=== PATIENT | female | born 1985 | race Caucasian/White ===

== ENCOUNTER 2019-12-24 21:30 | Emergency (ER) | payer BC ==
[2019-12-24] MEDS ORDERED: Albuterol/Ipratropium 3.0-0.5 MG/3 ML Neb Soln NEB ONE (22:13)
--- NOTE | 2019-12-24 22:14 | EDM.PDOC ---
ED HPI GENERAL MEDICAL PROBLEM - General Chief Complaint: Chest Pain Stated Complaint: SORE THROAT COUGH Time Seen by Provider: 12/24/19 22:08 Source of Information: Reports: Patient History Limitations: Reports: No Limitations - History of Present Illness INITIAL COMMENTS - FREE TEXT/NARRATIVE: 34-year-old female presents to the ED with severe paroxysmal cough. She has been ill for over a week. She was tested for influenza and proved to be negative over a week ago. She still remains mildly febrile on my examination. She complaining of sore throat,mostly from coughing .She her voice has remained quite hoarse. She is feeling more wheezy and tight in her chest. Tonight she coughed so hard she felt something rip or tear in her left upper anterior chest below her collarbone and upper ribs. This pain is quite severe with touching. Does hurt mildly with deep inspiration at this time but is still aggravated by coughing. Onset: Other (Patient reports she has been ill with upper respiratory tract infection with bronchitis/cough) Onset Date: 12/17/19 Duration: Day(s):, Constant, Waxing/Waning Location: Reports: Chest (There paroxysmal cough occasionally productive of brownish sputum.), Other (Worse voice. Was hurt from coughing so much cough does disrupt her sleep as well.) Quality: Reports: Other (Pain left upper anterior chest from coughing so much tonight.) Severity: Moderate (A 7-8 out of 10) Improves with: Reports: Rest (Breathing shallowly and resting) Worsens with: Reports: Other, Movement Context: Denies: Activity, Exercise (Coughing), Lifting, Sick Contact, Trauma, Other Associated Symptoms: Reports: Chest Pain (Acute exacerbation of left upper anterior chest pain from coughing so hard tonight.), Cough, cough w sputum, Fever/Chills, Loss of Appetite, Malaise, Nausea/Vomiting (Vomiting a couple of times from coughing so much), Shortness of Breath. Denies: No Other Symptoms, Confusion ( She felt a ripping tearing pain left upper anterior chest. 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) Left Chest Pain Score (Numeric/FACES): 4 - Related Data Allergies Allergy/AdvReac Type Severity Reaction Status Date / Time influenza virus vaccine, Allergy Lethargy Verified 12/24/19 21:50 specific latex Allergy Hives Verified 12/24/19 21:50 Whooping Cough Vaccine Allergy Lethargy Uncoded 12/24/19 21:50 Home Meds: Home Meds Doxycycline [Vibramycin] 100 mg PO BID #20 cap 12/24/19 [Rx] Hydrocodone/Chlorphen P-Stirex [Hydrocodone-Chlorphen ER Susp] 5 ml PO Q12H PRN #60 ml 12/24/19 [Rx] predniSONE [Prednisone] 20 mg PO ASDIRECTED #18 tablet 12/24/19 [Rx] Past Medical History HEENT History: Reports: Impaired Vision Cardiovascular History: Reports: Heart Murmur Respiratory History: Reports: Bronchitis, Recurrent, Pneumonia, Recurrent 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: Musculoskeletal History: Reports: None Neurological History: Reports: None Psychiatric History: Reports: None Endocrine/Metabolic History: Reports: Obesity/BMI 30+ Hematologic History: Reports: None Immunologic History: Reports: None Oncologic (Cancer) History: Reports: None Dermatologic History: Reports: None - Infectious Disease History Infectious Disease History: Reports: None - Past Surgical History GI Surgical History: Reports: Cholecystectomy Female Surgical History: Reports: Other (See Below) Other Female Surgeries/Procedures: Colposcopy Social & Family History - Tobacco Use Smoking Status *Q: Never Smoker - Caffeine Use Caffeine Use: Reports: Other Other Caffeine Use: Sparkling Water c Caffeine - Recreational Drug Use Recreational Drug Use: No - Living Situation & Occupation Living situation: Reports: Occupation: Employed [employer] GENERAL - Review of Systems Review Of Systems: See Below Constitutional: Reports: Fever, Chills, Malaise, Weakness, Fatigue, Decreased Appetite HEENT: Reports: Other Respiratory: Reports: Shortness of Breath (Sore throat and hoarse voice), Wheezing, Cough, Sputum. Denies: Pleuritic Chest Pain, Hemoptysis Cardiovascular: Reports: Chest Pain (Bilateral rib pain from coughing for the last week. Acute left upper anterior chest pain tonight from coughing so hard) , Blood Pressure Problem, Lightheadedness. Denies: Claudication, Dyspnea on Exertion, Edema (Coughing so hard at times), Orthopnea, Palpitations Endocrine: Reports: Fatigue GI/Abdominal: Reports: Decreased Appetite, Vomiting : Reports: No Symptoms (Posttussive emesis a couple of times in the last week. ) Musculoskeletal: Reports: Back Pain Skin: Reports: No Symptoms Neurological: Reports: No Symptoms Psychiatric: Reports: No Symptoms (Patient problems with low back pain) Hematologic/Lymphatic: Reports: No Symptoms Immunologic: Reports: No Symptoms ED EXAM, GENERAL - Physical Exam Exam: See Below Exam Limited By: No Limitations General Appearance: Alert, WD/WN, Mild Distress, Other (Temperature is 36.2 although she feels warmer than this. Heart rate is 85 and sinus respiratory is 18 BP is elevated 182/103. Pulse ox 95% on room air.) Eye Exam: Bilateral Eye: Normal Inspection Ears: Normal TMs Throat/Mouth: Normal Inspection, Normal Lips, Normal Teeth, Normal Oropharynx Head: Atraumatic, Normocephalic Neck: Normal Inspection, Supple, Non-Tender, Full Range of Motion. No: Lymphadenopathy (L), Lymphadenopathy (R) Respiratory/Chest: No Respiratory Distress, No Accessory Muscle Use, Rhonchi, Wheezing, Other (Patient is exquisitely tender to palpation of the left upper anterior chest with musculature below her clavicle and adjacent to ribs 2 and 3 at the costochondral joints. She appears to have strained the joints from coughing and torn muscle overlying this area. Most likely pectoralis major.). No: Lungs Clear ([place] expiratory wheeze particular from the right lung base.), Normal Breath Sounds Cardiovascular: Normal Peripheral Pulses (Rhonchi best heard upper anterior chest with coughing. Cough does sound productive), Regular Rate, Rhythm, No Edema, No Gallop, No Murmur, No Rub Peripheral Pulses: 3+: Posterior Tibial (L), Posterior Tibial (R), Dorsalis Pedis (L), Dorsalis Pedis (R) GI/Abdominal: Normal Bowel Sounds, Soft, Non-Tender, No Organomegaly, No Abnormal Bruit, No Mass, Pelvis Stable, Other (Abdominal girth limits ability to palpate solid organs.) Back Exam: Normal Inspection, Full Range of Motion. No: CVA Tenderness (L), CVA Tenderness (R) Extremities: Normal Inspection, Normal Range of Motion, Non-Tender, No Pedal Edema Neurological: Alert, Oriented, CN II-XII Intact, Normal Cognition Psychiatric: Anxious Skin Exam: Warm, Dry, Intact, Normal Color, No Rash Course - Vital Signs Last Recorded V/S: Last Vital Signs Temp 36.2 C 12/24/19 21:47 Pulse 90 12/24/19 23:19 Resp 20 12/24/19 23:19 BP 142/78 H 12/24/19 23:19 Pulse Ox 97 12/24/19 23:19 - Orders/Labs/Meds Orders: Active Orders 24 hr Category Date Time Status RT Aerosol Therapy [RC] ASDIRECTED Care 12/24/19 22:13 Active Chest 2V [CR] Stat Exams 12/24/19 22:11 Taken Meds: Medications Discontinued Medications Generic Name Dose Route Start Last Admin Trade Name Freq PRN Reason Stop Dose Admin Albuterol/Ipratropium 3 ml 12/24/19 22:13 12/24/19 22:29 Duoneb 3.0-0.5 Mg/3 Ml NEB 12/24/19 22:14 3 ml ONETIME ONE Administration Oxycodone/Acetaminophen 2 tab 12/24/19 22:53 12/24/19 23:13 Percocet 325-5 Mg PO 12/24/19 22:54 2 tab ONETIME ONE Administration Prednisone 30 mg 12/24/19 22:54 12/24/19 23:13 Prednisone PO 12/24/19 22:55 30 mg ONETIME ONE Administration - Radiology Interpretation Free Text/Narrative:: 34-year-old female attends the ED due to a weeklong history of severe paroxysmal cough that just is not getting any better. She continues to run a low-grade fever and feel intermittently chilled. She was tested in the clinic last week within the first day of illness for influenza and it proved to be negative. They could have been false negative. She came to the ED tonight because of coughing so hard she developed sudden onset of severe ripping tearing pain left upper anterior chest. She is very tender to palpation left upper anterior chest over the costochondral joints #2 and 3 left upper anterior chest and inferior to her collarbone where the muscle attaches to the clavicle. She does have some rhonchi midline upper chest and wheezing in her right lower chest. I am going to give her a DuoNeb treatment. Chest x-ray two-view will be done to rule out pneumonia. Given Percocet 5 /325 mg -2 tablets by mouth now for pain relief . - Re-Assessments/Exams Free Text/Narrative Re-Assessment/Exam: 12/24/19 22:51 Two view chest x-ray is within normal limits. There is some basilar atelectasis bilaterally but I do not feel there is a true infiltrate right lower lobe to suggest pneumonia. Gnosis is Bronkaid colitis with severe paroxysmal cough. Place the patient on prednisone 20 mg twice daily for 6 days and then once in the morning for another 6 days. Give her a prescription for Penntuss cough syrup 5 mils every 12 hours as necessary for relief of severe cough. Antibiotic will be doxycycline 100 mg twice daily for the next 10 days. I have also given her prednisone 30 mg p.o. in the ED. We will follow- up with her personal care physician if any further problems occur or she has not markedly improved in the next 5 days. Departure - Departure Time of Disposition: 22:52 Disposition: Home, Self-Care 01 Condition: Fair Clinical Impression: Acute wheezy bronchitis Chest wall muscle strain Qualifiers: Encounter type: initial encounter Qualified Code(s): S29.011A - Strain of muscle and tendon of front wall of thorax, initial encounter - Discharge Information *PRESCRIPTION DRUG MONITORING PROGRAM REVIEWED*: Not Applicable *COPY OF PRESCRIPTION DRUG MONITORING REPORT IN PATIENT KATHERIN: Not Applicable Prescriptions: Doxycycline [Vibramycin] 100 mg PO BID #20 cap Hydrocodone/Chlorphen P-Stirex [Hydrocodone-Chlorphen ER Susp] 5 ml PO Q12H PRN #60 ml PRN Reason: cough relief predniSONE [Prednisone] 20 mg PO ASDIRECTED #18 tablet Instructions: Muscle Strain, [id number], Acute Bronchitis, Adult, Easy-to- Read Referrals: PCP,None [Primary Care Provider] - Forms: ED Department Discharge, ED Return to Work/School Form Additional Instructions: Evaluation in the emergency room tonight in regards to development of acute left upper anterior chest pain during a coughing spell tonight. Examination reveals marked tenderness along the second and third costochondral joints where the ribs join onto the breastbone and the overlying muscles that attach to your collarbone of the upper chest. You have been sick for over a week and still have a low-grade fever and producing sputum. Previous testing for influenza proved to be negative. A chest x-ray was done tonight and does not reveal any signs of pneumonia. Diagnosis therefore is bronchitis. You were given Percocet tablets to 325 mg tablets for pain relief in the ED and also to help suppress cough for the next 4 to 6 hours. You were also given a breathing treatment to help relieve some of your wheezing and chest tightness. Treatment is to be antibiotic doxycycline 100 mg twice daily for the next 10 days to clear up infection. Penntuss cough syrup 5 mils every 12 hours necessary for relief of cough. Suggest at least 5 mils an hour before planning to go to bed as it takes about an hour to work and hopefully will suppress cough overnight. If you are still coughing in another hour may take another half a teaspoon of the medication. Prednisone 20 mg with breakfast and supper for the next 6 days and then 1 tablet morning for another 6 days to reduce inflammation of the lungs and help with wheezing and cough. Initial dose of prednisone 30 mg was given in the ED tonight. Continue Motrin 600 mg every 6 hours as needed for relief of fever as needed. Suggest off work for the next 3 days and a note was given in this regard. Sepsis Event Note - Evaluation Sepsis Screening Result: No Definite Risk - Focused Exam Vital Signs: Vital Signs Temp Pulse Resp BP Pulse Ox Pulse Ox 12/24/19 23:19 90 20 142/78 H 97 12/24/19 22:13 96 12/24/19 21:47 36.2 C 85 18 182/103 H 95 Date Exam was Performed: 12/25/19 Time Exam was Performed: 04:23 - My Orders Last 24 Hours: My Active Orders 12/24/19 22:11 Chest 2V [CR] Stat 12/24/19 22:13 RT Aerosol Therapy [RC] ASDIRECTED - Assessment/Plan Last 24 Hours: My Active Orders 12/24/19 22:11 Chest 2V [CR] Stat 12/24/19 22:13 RT Aerosol Therapy [RC] ASDIRECTED
[2019-12-24] MEDS ORDERED: Acetaminophen/oxyCODONE 325-5 MG Tab PO ONE (22:53)
[2019-12-24] MEDS ORDERED: predniSONE 20 MG Tab PO ONE (22:54)
--- NOTE | 2019-12-25 07:45 | CR ---
Chest: Two views of the chest were obtained. Comparison: No prior chest imaging. Heart size and mediastinum are normal. Lungs are clear with no acute parenchymal change. Bony structures are unremarkable. Impression: 1. Nothing acute is appreciated on two-view chest x-ray. Diagnostic code #1 This report was dictated in Mountain Standard Time
== END 2019-12-24 23:19 | disposition home or self-care (01) ==
LOC: JD.ED 21:30
DX: S29.011A Strain of muscle and tendon of front wall of thorax, initial encounter (principal); J20.9 Acute bronchitis, unspecified; R06.2 Wheezing; Z91.040 Latex allergy status; E66.9 Obesity, unspecified; X58.XXXA Exposure to other specified factors, initial encounter
CPT/HCPCS: 71046; 94640; 99285; A9270; 99284; J7620-GY

== ENCOUNTER 2020-11-10 06:33 | Emergency (ER) | payer BC ==
--- NOTE | 2020-11-10 08:08 | EDM.PDOC ---
ED HPI GENERAL MEDICAL PROBLEM - General Chief Complaint: Cardiovascular Problem Stated Complaint: DIFFICULTY BREATHING Time Seen by Provider: 11/10/20 06:54 Source of Information: Reports: Patient History Limitations: Reports: No Limitations - History of Present Illness INITIAL COMMENTS - FREE TEXT/NARRATIVE: The patient presents with palpitations. 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 She also had some shortness of breath and felt like her stomach was upset. Her charge nurse checked her BP and it was elevated at 176 systolic. She has no chest pain, fever, chills, cough, abdominal pain, nausea or vomiting. She has no medical problems. Onset: Sudden Duration: Hour(s): Severity: Moderate Improves with: Reports: None Worsens with: Reports: None Associated Symptoms: Reports: Shortness of Breath. Denies: Chest Pain, Cough, Fever/Chills, Headaches, Nausea/Vomiting - Related Data Allergies Allergy/AdvReac Type Severity Reaction Status Date / Time influenza virus vaccine, Allergy Lethargy Verified 11/10/20 06:44 specific latex Allergy Hives Verified 11/10/20 06:44 Whooping Cough Vaccine Allergy Lethargy Uncoded 12/24/19 21:50 Home Meds: Home Meds Norethindrone-Ethin. 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: Musculoskeletal History: Reports: None Neurological History: Reports: None Psychiatric History: Reports: None Endocrine/Metabolic History: Reports: Obesity/BMI 30+ Hematologic History: Reports: None Immunologic History: Reports: None Oncologic (Cancer) History: Reports: None Dermatologic History: Reports: None - Infectious Disease History Infectious Disease History: Reports: None - Past Surgical History GI Surgical History: Reports: Cholecystectomy Female Surgical History: Reports: Other (See Below) Other Female Surgeries/Procedures: Colposcopy Social & Family History - Tobacco Use Tobacco Use Status *Q: Never Tobacco User - Caffeine Use Caffeine Use: Reports: Other Other Caffeine Use: Sparkling Water c Caffeine - Living Situation & Occupation Living situation: Reports: Occupation: Employed ED [employer] GENERAL - Review of Systems Review Of Systems: See Below Constitutional: Reports: No Symptoms HEENT: Reports: No Symptoms Respiratory: Reports: Shortness of Breath. Denies: Cough Cardiovascular: Reports: Palpitations. Denies: Chest Pain Endocrine: Reports: No Symptoms GI/Abdominal: Reports: No Symptoms ED EXAM, GENERAL - Physical Exam Exam: See Below Exam Limited By: No Limitations General Appearance: Alert, No Apparent Distress Ears: Normal External Exam Nose: Normal Inspection Head: Atraumatic, Normocephalic Neck: Normal Inspection Respiratory/Chest: No Respiratory Distress, Lungs Clear, Normal Breath Sounds Cardiovascular: Regular Rate, Rhythm, No Edema, No Murmur GI/Abdominal: Soft, Non-Tender, No Organomegaly, No Mass Back Exam: Normal Inspection Extremities: Normal Inspection Neurological: Alert, Oriented, No Motor/Sensory Deficits #1 Interpretation EKG Date: 11/10/20 Time: 06:47 Rhythm: Other (sinus tachycardia) Rate (Beats/Min): 100 Leon: Normal P-Wave: Present QRS: Normal ST-T: Normal QT: Normal Course - Vital Signs Last Recorded V/S: Last Vital Signs Temp 98.3 F 11/10/20 06:45 Pulse 114 H 11/10/20 06:45 Resp 16 11/10/20 06:45 BP 140/72 11/10/20 06:45 Pulse Ox 100 11/10/20 06:45 - Orders/Labs/Meds Orders: Active Orders 24 hr Category Date Time Status Cardiac Monitoring [RC] . DIRECTED Care 11/10/20 07:09 Active EKG 12 Lead [EKG Documentation Completion] [RC] STAT Care 11/10/20 06:52 Active Holter Monitor 48 Hours [RC] .PRN Care 11/10/20 08:40 Active Labs: Laboratory Tests 11/10/20 11/10/20 11/10/20 Range/Units 07:23 07:23 07:23 WBC 10.72 H (3.98-10.04) K/mm3 RBC 4.61 (3.98-5.22) M/mm3 Hgb 13.2 (11.2-15.7) gm/dl Hct 40.4 (34.1-44.9) % MCV 87.6 (79.4-94.8) fl MCH 28.6 (25.6-32.2) pg MCHC 32.7 (32.2-35.5) g/dl RDW Std Deviation 42.7 (36.4-46.3) fL Plt Count 321 (182-369) K/mm3 MPV 8.5 L (9.4-12.3) fl Neut % (Auto) 67.3 (34.0-71.1) % Lymph % (Auto) 27.1 (19.3-51.7) % Norman % (Auto) 4.0 L (4.7-12.5) % Eos % (Auto) 1.2 (0.7-5.8) Baso % (Auto) 0.1 (0.1-1.2) % Neut # (Auto) 7.22 H (1.56-6.13) K/mm3 Lymph # (Auto) 2.90 (1.18-3.74) K/mm3 Norman # (Auto) 0.43 H (0.24-0.36) K/mm3 Eos # (Auto) 0.13 (0.04-0.36) K/mm3 Baso # (Auto) 0.01 (0.01-0.08) K/mm3 D-Dimer, Quantitative 0.41 (0.19-0.50) mg/L Sodium 140 (136-145) mEq/L Potassium 4.1 (3.5-5.1) mEq/L Chloride 103 (98-107) mEq/L Carbon Dioxide 25 (21-32) mEq/L Anion Gap 16.1 H (5-15) BUN 10 (7-18) mg/dL Creatinine 0.6 (0.55-1.02) mg/dL Est Cr Clr Drug Dosing 5.10 mL/min Estimated GFR (MDRD) > 60 (>60) mL/min BUN/Creatinine Ratio 16.7 (14-18) Glucose 101 (74-106) mg/dL Calcium 8.8 (8.5-10.1) mg/dL Magnesium 2.1 (1.8-2.4) mg/dl Total Bilirubin 0.3 (0.2-1.0) mg/dL AST 12 L (15-37) U/L ALT 22 (14-59) U/L Alkaline Phosphatase 62 (46-116) U/L Troponin I < 0.017 (0.00-0.056) ng/mL Total Protein 7.6 (6.4-8.2) g/dl Albumin 3.2 L (3.4-5.0) g/dl Globulin 4.4 gm/dL Albumin/Globulin Ratio 0.7 L (1-2) TSH 3rd Generation (0.358-3.74) uIU/mL 11/10/20 Range/Units 07:23 WBC (3.98-10.04) K/mm3 RBC (3.98-5.22) M/mm3 Hgb (11.2-15.7) gm/dl Hct (34.1-44.9) % MCV (79.4-94.8) fl MCH (25.6-32.2) pg MCHC (32.2-35.5) g/dl RDW Std Deviation (36.4-46.3) fL Plt Count (182-369) K/mm3 MPV (9.4-12.3) fl Neut % (Auto) (34.0-71.1) % Lymph % (Auto) (19.3-51.7) % Norman % (Auto) (4.7-12.5) % Eos % (Auto) (0.7-5.8) Baso % (Auto) (0.1-1.2) % Neut # (Auto) (1.56-6.13) K/mm3 Lymph # (Auto) (1.18-3.74) K/mm3 Norman # (Auto) (0.24-0.36) K/mm3 Eos # (Auto) (0.04-0.36) K/mm3 Baso # (Auto) (0.01-0.08) K/mm3 D-Dimer, Quantitative (0.19-0.50) mg/L Sodium (136-145) mEq/L Potassium (3.5-5.1) mEq/L Chloride (98-107) mEq/L Carbon Dioxide (21-32) mEq/L Anion Gap (5-15) BUN (7-18) mg/dL Creatinine (0.55-1.02) mg/dL Est Cr Clr Drug Dosing mL/min Estimated GFR (MDRD) (>60) mL/min BUN/Creatinine Ratio (14-18) Glucose (74-106) mg/dL Calcium (8.5-10.1) mg/dL Magnesium (1.8-2.4) mg/dl Total Bilirubin (0.2-1.0) mg/dL AST (15-37) U/L ALT (14-59) U/L Alkaline Phosphatase (46-116) U/L Troponin I (0.00-0.056) ng/mL Total Protein (6.4-8.2) g/dl Albumin (3.4-5.0) g/dl Globulin gm/dL Albumin/Globulin Ratio (1-2) TSH 3rd Generation 2.768 (0.358-3.74) uIU/mL - Re-Assessments/Exams Free Text/Narrative Re-Assessment/Exam: 11/10/20 09:26 I ordered an EKG and labs. Her EKG looks good. There is some PVCs. Her labs look good. I will put on a Holter monitor for 48hrs. Departure - Departure Time of Disposition: 09:30 Disposition: Home, Self-Care 01 Condition: Good Clinical Impression: Palpitations Referrals: Katlyn Soto MD [Primary Care Provider] - 1 Week Forms: ED Department Discharge Additional Instructions: Wear the Holter monitor for 48 hours. Drink plenty of fluids. Avoid caffeine. Follow up with your doctor within a week. Please return if you are worse. Sepsis Event Note (ED) - Evaluation Sepsis Screening Result: No Definite Risk - Focused Exam Vital Signs: Vital Signs Temp Pulse Resp BP Pulse Ox 11/10/20 06:45 98.3 F 114 H 16 140/72 100 - My Orders Last 24 Hours: My Active Orders 11/10/20 06:52 EKG 12 Lead [EKG Documentation Completion] [RC] STAT 11/10/20 07:09 Cardiac Monitoring [RC] . DIRECTED 11/10/20 08:40 Holter Monitor 48 Hours [RC] .PRN - Assessment/Plan Last 24 Hours: My Active Orders 11/10/20 06:52 EKG 12 Lead [EKG Documentation Completion] [RC] STAT 11/10/20 07:09 Cardiac Monitoring [RC] . DIRECTED 11/10/20 08:40 Holter Monitor 48 Hours [RC] .PRN
--- NOTE | 2020-11-10 08:44 | CR ---
Chest: Portable view of the chest was obtained. Comparison: Prior chest x-ray of 12/24/19. Heart size and mediastinum are within normal limits for portable technique. Lungs are clear with no acute parenchymal change. Bony structures are grossly intact. Impression: 1. Nothing acute is seen on portable chest x-ray. Diagnostic code #1
== END 2020-11-10 09:39 | disposition home or self-care (01) ==
LOC: JD.ED 06:33
DX: R00.2 Palpitations (principal); E66.9 Obesity, unspecified; Z88.7 Allergy status to serum and vaccine; Z91.040 Latex allergy status; Z88.8 Allergy status to other drugs, medicaments and biological substances
CPT/HCPCS: 36415; 71045; 71045-26; 80053; 83735; 84443; 84484; 85025; 85379; 93005; 93010; 93225; 93226; 99283; 99285-25

== ENCOUNTER 2021-01-20 11:36 | Emergency (ER) | payer BC ==
[2021-01-20] MEDS ORDERED: Sodium Chloride 0.9% 10 ML Syringe FLUSH PRN (11:50)
--- NOTE | 2021-01-20 12:00 | EDM.PDOC ---
ED HPI GENERAL MEDICAL PROBLEM - General Chief Complaint: SENIOR ADMINISTRATIVE SUPPORT Problem Stated Complaint: HEAVY MENSTRUAL BLEEDING/PAINFUL CRAMPING Time Seen by Provider: 01/20/21 11:49 Source of Information: Reports: Patient, RN Notes Reviewed History Limitations: Reports: No Limitations - History of Present Illness INITIAL COMMENTS - FREE TEXT/NARRATIVE: Patient is a 35-year-old female who presents to the ED for evaluation of her heavy menstrual bleeding. The patient notes she had instance like this roughly 2 years ago, and she was seen by her SENIOR ADMINISTRATIVE SUPPORT, Dr. Albert, and was placed on bi rth control pills. Patient states she has not gotten any sort of periods since she was placed on these pills 2 years ago. She states that on Monday of this week, she just felt fatigued, and had generalized malaise. And then on Monday the vaginal bleeding started. She was bleeding through a maxi pad every 2 hours, she did call Dr. Albert yesterday, and she is stated that if she starts bleeding more than that, then she should be evaluated. Patient notes that this is progressed to changing 1 maxi pad every hour to hour and a half, she is feeling chilled, lightheaded and dizzy with any sort of positional movement, and she is complaining of some abdomen cramping. She did take some ibuprofen at around 9 AM, and states that seem to take the edge off of things. She has not had any fevers, cough or shortness of breath, nausea/vomiting/diarrhea, she denies chance of at today's visit as well as her has had a vasectomy. Pelvic Pain Score (Numeric/FACES): 6 - Related Data Allergies Allergy/AdvReac Type Severity Reaction Status Date / Time adhesive tape Allergy Mild Rash Verified 01/20/21 11:50 influenza virus vaccine, Allergy Mild Lethargy Verified 01/20/21 11:50 specific latex Allergy Mild Hives Verified 01/20/21 11:50 Latex, Natural Rubber Allergy Mild Hives Verified 01/20/21 11:50 Whooping Cough Vaccine Allergy Mild Lethargy Uncoded 01/20/21 11:50 Home Meds: Home Meds Norethindrone-Ethin. Estradiol [Dasetta 1-35-28 Tablet] 1 tab PO DAILY 11/10/20 [History] FLUoxetine HCl [Fluoxetine HCl] 20 mg PO DAILY 01/20/21 [History] miSOPROStoL [Misoprostol] 200 mcg PO QID 5 Days #20 tablet 01/20/21 [Rx] Past Medical History HEENT History: Reports: Impaired Vision Cardiovascular History: Reports: Heart Murmur Respiratory History: Reports: Bronchitis, Recurrent, Pneumonia, Recurrent SENIOR ADMINISTRATIVE SUPPORT History: Reports: Musculoskeletal History: Reports: None Neurological History: Reports: None Psychiatric History: Reports: Anxiety Endocrine/Metabolic History: Reports: Obesity/BMI 30+ Hematologic History: Reports: None Immunologic History: Reports: None Oncologic (Cancer) History: Reports: None Dermatologic History: Reports: None - Infectious Disease History Infectious Disease History: Reports: None - Past Surgical History GI Surgical History: Reports: Cholecystectomy Female Surgical History: Reports: Other (See Below) Other Female Surgeries/Procedures: Colposcopy Social & Family History - Tobacco Use Tobacco Use Status *Q: Never Tobacco User Second Hand Smoke Exposure: No - Caffeine Use Caffeine Use: Reports: Soda Other Caffeine Use: Sparkling Water c Caffeine - Recreational Drug Use Recreational Drug Use: No - Living Situation & Occupation Living situation: Reports: Occupation: Employed ED ROS GENERAL - Review of Systems Review Of Systems: Comprehensive ROS is negative, except as noted in HPI. ED EXAM, RENAL/ - Physical Exam Exam: See Below Exam Limited By: No Limitations General Appearance: Alert, WD/WN, No Apparent Distress Respiratory/Chest: No Respiratory Distress, Lungs Clear, Normal Breath Sounds, No Accessory Muscle Use, Chest Non-Tender Cardiovascular: Normal Peripheral Pulses, Regular Rate, Rhythm, No Edema GI/Abdominal: Normal Bowel Sounds, Soft, No Distention, No Mass, Tender (slight tenderness to lower abdomen, pt is obese and makes exam somewhat difficult/limited) (Female) Exam: Deferred Extremities: Normal Inspection, Normal Capillary Refill Neurological: Alert, Oriented, Normal Cognition, No Motor/Sensory Deficits Psychiatric: Normal Affect, Normal Mood Skin Exam: Warm, Dry, Intact, No Rash, Pallor (slight generalized) Course - Vital Signs Last Recorded V/S: Last Vital Signs Temp 98.1 F 01/20/21 11:44 Pulse 87 01/20/21 11:44 Resp 16 01/20/21 11:44 BP 160/83 H 01/20/21 11:44 Pulse Ox 97 01/20/21 11:44 - Orders/Labs/Meds Orders: Active Orders 24 hr Category Date Time Status Peripheral IV Care [RC] . DIRECTED Care 01/20/21 11:50 Active PATIENT RETYPE [BBK] Routine Lab 01/20/21 13:58 Ordered Sodium Chloride 0.9% [Saline Flush] Med 01/20/21 11:50 Active 10 ml FLUSH ASDIRECTED PRN miSOPROStoL [Cytotec] Med 01/20/21 14:50 Once 200 mcg PO ONETIME ONE Peripheral IV Insertion Adult [OM.PC] Routine Oth 01/20/21 11:50 Ordered Medication Orders Sodium Chloride (Sodium Chloride 0.9% 10 Ml Syringe) 10 ml FLUSH ASDIRECTED PRN PRN Reason: Keep Vein Open Last Admin: 01/20/21 12:10 Dose: 10 ml Documented by: TONY Labs: Laboratory Tests 01/20/21 01/20/21 01/20/21 Range/Units 12:58 12:58 12:58 WBC 10.70 H (3.98-10.04) K/mm3 RBC 4.35 (3.98-5.22) M/mm3 Hgb 12.4 (11.2-15.7) gm/dl Hct 38.7 (34.1-44.9) % MCV 89.0 (79.4-94.8) fl MCH 28.5 (25.6-32.2) pg MCHC 32.0 L (32.2-35.5) g/dl RDW Std Deviation 43.5 (36.4-46.3) fL Plt Count 297 (182-369) K/mm3 MPV 8.7 L (9.4-12.3) fl Neut % (Auto) 68.1 (34.0-71.1) % Lymph % (Auto) 23.9 (19.3-51.7) % [place] % (Auto) 6.1 (4.7-12.5) % Eos % (Auto) 1.5 (0.7-5.8) Baso % (Auto) 0.2 (0.1-1.2) % Neut # (Auto) 7.29 H (1.56-6.13) K/mm3 Lymph # (Auto) 2.56 (1.18-3.74) K/mm3 [place] # (Auto) 0.65 H (0.24-0.36) K/mm3 Eos # (Auto) 0.16 (0.04-0.36) K/mm3 Baso # (Auto) 0.02 (0.01-0.08) K/mm3 Sodium 141 (136-145) mEq/L Potassium 3.8 (3.5-5.1) mEq/L Chloride 104 (98-107) mEq/L Carbon Dioxide 28 (21-32) mEq/L Anion Gap 12.8 (5-15) BUN 11 (7-18) mg/dL Creatinine 0.7 (0.55-1.02) mg/dL Est Cr Clr Drug Dosing 112.08 mL/min Estimated GFR (MDRD) > 60 (>60) mL/min BUN/Creatinine Ratio 15.7 (14-18) Glucose 100 (74-106) mg/dL Calcium 8.5 (8.5-10.1) mg/dL Total Bilirubin 0.4 (0.2-1.0) mg/dL AST 15 (15-37) U/L ALT 25 (14-59) U/L Alkaline Phosphatase 58 (46-116) U/L Total Protein 6.9 (6.4-8.2) g/dl Albumin 3.1 L (3.4-5.0) g/dl Globulin 3.8 gm/dL Albumin/Globulin Ratio 0.8 L (1-2) HCG, Qual Negative (NEGATIVE) Blood Type Gel Antibody Screen 01/20/21 Range/Units 12:58 WBC (3.98-10.04) K/mm3 RBC (3.98-5.22) M/mm3 Hgb (11.2-15.7) gm/dl Hct (34.1-44.9) % MCV (79.4-94.8) fl MCH (25.6-32.2) pg MCHC (32.2-35.5) g/dl RDW Std Deviation (36.4-46.3) fL Plt Count (182-369) K/mm3 MPV (9.4-12.3) fl Neut % (Auto) (34.0-71.1) % Lymph % (Auto) (19.3-51.7) % [place] % (Auto) (4.7-12.5) % Eos % (Auto) (0.7-5.8) Baso % (Auto) (0.1-1.2) % Neut # (Auto) (1.56-6.13) K/mm3 Lymph # (Auto) (1.18-3.74) K/mm3 [place] # (Auto) (0.24-0.36) K/mm3 Eos # (Auto) (0.04-0.36) K/mm3 Baso # (Auto) (0.01-0.08) K/mm3 Sodium (136-145) mEq/L Potassium (3.5-5.1) mEq/L Chloride (98-107) mEq/L Carbon Dioxide (21-32) mEq/L Anion Gap (5-15) BUN (7-18) mg/dL Creatinine (0.55-1.02) mg/dL Est Cr Clr Drug Dosing mL/min Estimated GFR (MDRD) (>60) mL/min BUN/Creatinine Ratio (14-18) Glucose (74-106) mg/dL Calcium (8.5-10.1) mg/dL Total Bilirubin (0.2-1.0) mg/dL AST (15-37) U/L ALT (14-59) U/L Alkaline Phosphatase (46-116) U/L Total Protein (6.4-8.2) g/dl Albumin (3.4-5.0) g/dl Globulin gm/dL Albumin/Globulin Ratio (1-2) HCG, Qual (NEGATIVE) Blood Type A POSITIVE Gel Antibody Screen Negative Meds: Medications Generic Name Dose Route Start Last Admin Trade Name Freq PRN Reason Stop Dose Admin Sodium Chloride 10 ml 01/20/21 11:50 01/20/21 12:10 Sodium Chloride 0.9% 10 Ml Syringe FLUSH 10 ml ASDIRECTED PRN Administration Keep Vein Open Discontinued Medications Generic Name Dose Route Start Last Admin Trade Name Freq PRN Reason Stop Dose Admin Misoprostol 200 mcg 01/20/21 14:50 Misoprostol 100 Mcg Tab PO 01/20/21 14:51 ONETIME ONE - Re-Assessments/Exams Free Text/Narrative Re-Assessment/Exam: 01/20/21 11:59 Patient presents to the ER for her heavy vaginal bleeding, we will go ahead and get IV placed take some basic labs, do a type and screen in case she would need blood products for today's purposes. Patient did give verbal consent initially if she needed blood, she states she would take it. 01/20/21 14:52 The patient's laboratory evaluation demonstrates no drop in her hemoglobin, she is within normal limits at 12. Patient's blood type is A+, the patient's hCG test is negative. I did call Dr. Yoon for consultation and he states that the patient should be able to safely take Cytotec 200 mcg every 6 hours x5 days. She is to see Dr. Albert tomorrow or Monday for management. Patient has already called Dr. Raygoza's office and they will try to fit her in the schedule on Monday. First dose of Cytotec will be given in the ER. Departure - Departure Time of Disposition: 14:53 Disposition: Home, Self-Care 01 Condition: Good Clinical Impression: Dysfunctional uterine bleeding - Discharge Information *PRESCRIPTION DRUG MONITORING PROGRAM REVIEWED*: No *COPY OF PRESCRIPTION DRUG MONITORING REPORT IN PATIENT KATHERIN: No Prescriptions: miSOPROStoL [Misoprostol] 200 mcg PO QID 5 Days #20 tablet Instructions: Dysfunctional Uterine Bleeding Referrals: Katlyn Soto MD [Primary Care Provider] - Forms: ED Department Discharge, ED Return to Work/School Form Additional Instructions: You were evaluated in the ER today regarding your vaginal bleeding. You did have some labs drawn, your hemoglobin was within normal limits, and you do not need a blood transfusion at today's visit. Your blood type was A+. Your case was discussed with our SENIOR ADMINISTRATIVE SUPPORT on-call, and he recommends trying a medicine called Cytotec, you will need to take 1 tablet every 6 hours while awake for the next 5 days, and he does recommend you follow-up with your SENIOR ADMINISTRATIVE SUPPORT either tomorrow or on Monday. You indicated that you already have been in contact with your office and have gotten appointment for Monday, please keep this appointment. You might feel some increased abdomen cramping with this medication. Please monitor your vaginal bleeding, if you get increasing dizziness/light headedness, or any sort of syncopal type feelings, you may have lost too much blood and should return to the ER for further evaluation. Please return to the ED at any time if your symptoms change or worsen. Sepsis Event Note (ED) - Evaluation Sepsis Screening Result: No Definite Risk - Focused Exam Vital Signs: Vital Signs Temp Pulse Resp BP Pulse Ox 01/20/21 11:44 98.1 F 87 16 160/83 H 97 - My Orders Last 24 Hours: My Active Orders 01/20/21 11:50 Peripheral IV Care [RC] . DIRECTED Sodium Chloride 0.9% [Saline Flush] 10 ml FLUSH ASDIRECTED PRN Peripheral IV Insertion Adult [OM.PC] Routine 01/20/21 13:58 PATIENT RETYPE [BBK] Routine 01/20/21 14:50 miSOPROStoL [Cytotec] 200 mcg PO ONETIME ONE - Assessment/Plan Last 24 Hours: My Active Orders 01/20/21 11:50 Peripheral IV Care [RC] . DIRECTED Sodium Chloride 0.9% [Saline Flush] 10 ml FLUSH ASDIRECTED PRN Peripheral IV Insertion Adult [OM.PC] Routine 01/20/21 13:58 PATIENT RETYPE [BBK] Routine 01/20/21 14:50 miSOPROStoL [Cytotec] 200 mcg PO ONETIME ONE
[2021-01-20] MEDS ORDERED: Misoprostol 100 MCG Tab PO ONE (14:50)
[2021-01-20] MEDS ORDERED: Misoprostol 200 MCG Tab PO ONE (15:30)
== END 2021-01-20 15:23 | disposition home or self-care (01) ==
LOC: JD.ED 11:36
DX: N93.8 Other specified abnormal uterine and vaginal bleeding (principal); E66.9 Obesity, unspecified; Z68.43 Body mass index [BMI] 50.0-59.9, adult; Z91.048 Other nonmedicinal substance allergy status; Z88.7 Allergy status to serum and vaccine
CPT/HCPCS: 36415; 80053; 84703; 85025; 86850; 86900; 86901; 99284; A9270; 99283

== ENCOUNTER 2022-04-07 23:13 | Emergency (ER) | payer BC | END 2022-04-08 | disposition home or self-care (01) | LOC: JD.ED 23:13 | DX: K08.89 Other specified disorders of teeth and supporting structures (principal); E66.9 Obesity, unspecified; Z68.30 Body mass index [BMI] 30.0-30.9, adult; Z86.16 Personal history of COVID-19; Z90.49 Acquired absence of other specified parts of digestive tract; Z79.899 Other long term (current) drug therapy; Z91.048 Other nonmedicinal substance allergy status; Z91.040 Latex allergy status; Z88.7 Allergy status to serum and vaccine | CPT/HCPCS: 99282 ==

== ENCOUNTER 2023-10-10 19:10 | Emergency (ER) | payer BC ==
[2023-10-10 20:18] LABS: APPEARANCE,URINE SLT CLOUDY (Clear); BILIRUBIN,URINE NEGATIVE (Negative); COLOR,URINE YELLOW (Yellow); GLUCOSE,URINE NEGATIVE (Negative); KETONES,URINE NEGATIVE (Negative); LEUKOCYTE ESTERASE,URINE NEGATIVE (Negative); NITRITE,URINE NEGATIVE (Negative); OCCULT BLOOD,URINE NEGATIVE (Negative); PROTEIN,URINE NEGATIVE (Negative)
[2023-10-10 20:28] LABS: BASOPHILS PERCENT AUTO 0.1 % (0.0-1.0); EOSINOPHILS ABSOLUTE AUTO 0.1 K/mm3 (0.0-0.4); EOSINOPHILS PERCENT AUTO 0.8 % (0.0-6.0); HEMATOCRIT 40.1 % (37.0-47.0); HEMOGLOBIN 13.5 gm/dl (12.0-16.0); IMMATURE GRAN ABSOLUTE AUTO 0.05 K/mm3 (0.00-0.05); IMMATURE GRAN PERCENT AUTO 0.6 % (0.0-0.4); LYMPHOCYTES ABSOLUTE AUTO 1.5 K/mm3 (1.0-4.8); LYMPHOCYTES PERCENT AUTO 17.8 % (24.0-44.0); MEAN CORPUSCULAR HEMOGLOBIN 29.2 pg (28.0-32.0); MEAN CORPUSCULAR HGB CONC 33.7 g/dl (32.0-36.0); MEAN CORPUSCULAR VOLUME 86.8 fl (83.0-99.0); MEAN PLATELET VOLUME 8.4 fl (9.4-12.3); MONOCYTES ABSOLUTE AUTO 0.5 K/mm3 (0.0-0.8); MONOCYTES PERCENT AUTO 6.2 % (0.0-8.0); NEUTROPHILS ABSOLUTE AUTO 6.2 K/mm3 (1.8-7.7); NEUTROPHILS PERCENT AUTO 74.5 % (41.0-71.0); PLATELET COUNT,PLT 203 K/mm3 (150-400); RED BLOOD CELL COUNT 4.62 M/mm3 (4.10-5.30); WHITE BLOOD CELL COUNT,WBC 8.36 K/mm3 (3.9-11.3)
[2023-10-10 20:36] LABS: CORONAVIRUS COVID-19 NAA NEGATIVE (NEGATIVE); INFLUENZA A NAA NEGATIVE (NEGATIVE); RESPIRATORY SYNCYTIAL VIR NAA NEGATIVE (NEGATIVE)
[2023-10-10 20:40] LABS: BACTERIA,URINE MODERATE /hpf (FEW); MUCUS,URINE MODERATE /hpf (FEW); RBC,URINE 0-5 /hpf (0-5)
[2023-10-10 20:49] LABS: A/G RATIO 0.7 (1-2); ALBUMIN 3.1 g/dl (3.4-5.0); ANION GAP 10.3 (5-15); BILIRUBIN TOTAL 0.3 mg/dL (0.2-1.0); C-REACTIVE PROTEIN 3.9 mg/dL (<1.0); CALCIUM 8.6 mg/dL (8.5-10.1); CREATININE 0.8 mg/dL (0.55-1.02); EST CRCL DRUG DOSING (CG) 95.24 mL/min; MAGNESIUM 1.9 mg/dL (1.8-2.4); POTASSIUM,K 3.3 mEq/L (3.5-5.1); PROTEIN TOTAL,TP 7.4 g/dl (6.4-8.2)
== END 2023-10-10 22:28 | disposition home or self-care (01) ==
LOC: JD.ED 19:10
DX: R51.9 Headache, unspecified (principal); T88.7XXA Unspecified adverse effect of drug or medicament, initial encounter; I10 Essential (primary) hypertension; Z87.440 Personal history of urinary (tract) infections; Z86.16 Personal history of COVID-19; E66.9 Obesity, unspecified; Z91.048 Other nonmedicinal substance allergy status; Z88.7 Allergy status to serum and vaccine; Z91.040 Latex allergy status; Z20.822 Contact with and (suspected) exposure to COVID-19; Z68.43 Body mass index [BMI] 50.0-59.9, adult
CPT/HCPCS: 0241U; 36415; 80053; 81001; 83735; 85025; 86140; 99284; 99283